=== PATIENT | male | born 1980 | race African-American/Black ===

== ENCOUNTER 2019-08-09 11:05 | Inpatient (IN) ==
[2019-08-09 11:38] LABS: Basophils # 0.1 10*3/uL (0.0-0.2); Basophils % 1.2 % (0.0-0.8); Eosinophils # 0.1 10*3/uL (0.0-0.87); Eosinophils % 1.5 % (0.00-10.9); Hematocrit 34.5 VOL% (42.0-52.0); Hemoglobin 12.8 GM/DL (14.0-18.0); Immature Granulocytes % 0.5 %; Immature Granulocytes Absolute 0.03 #; Lymphocytes # 2.2 10*3/uL (1.4-4.0); Lymphocytes % 32.4 % (21.2-54.2); Mean Corpuscular HGB Conc 37.1 GM/DL (32-36); Monocytes % 13.9 % (1.7-12.7); Neutrophils % 50.5 % (38.7-73.9); Platelet Count 274 T/CUMM (130-400); Red Blood Count 4.26 MC/CUMM (3.8-5.5); White Blood Count 6.6 T/CUMM (4-12)
[2019-08-09 12:03] LABS: Alanine Aminotransferase 1941 U/L (16-61); Alkaline Phosphatase 288 U/L (45-117); Aspartate Amino Transferase 1746 U/L (0-37); Blood Urea Nitrogen 8 MG/DL (7-18); Calcium 8.5 MG/DL (8.5-10.1); Estimated Glom Filtration Rate 136 ML/MIN; Glucose 100 MG/DL (74-106); Osmolality,Calculated 265.2 MOS/KG (273-304); Total Protein 7.3 G/DL (6.4-8.3)
[2019-08-09 12:36] LABS: Barbiturates Screen,Urine Negative (Negative); Benzodiazepines Screen,Urine Negative (Negative); Cannabinoid Screen,Urine Negative (Negative); Opiate Screen,Urine Negative (Negative); Phencyclidine Screen,Urine Negative (Negative)
[2019-08-09 13:22] LABS: Hepatitis B Core IgM Quant > 9.00 Index; Hepatitis B Surface Ag Quant > 1000.00 Index; Hepatitis B Surface Ag Result Positive (Negative); Hepatitis C Virus Ab Quant 0.17 Index; Hepatitis C Virus Ab Result Negative (Negative)
[2019-08-09 14:41] LABS: INR 1.1
[2019-08-09] MEDS: SODIUM CHLORIDE 0.9% 1,000 ML IV SCH (17:54)
[2019-08-09] MEDS: MORPHINE 4 MG/1 ML VIAL IV PRN (21:52)
[2019-08-09] MEDS: ENOXAPARIN 40 MG/0.4 ML SYRINGE SUBCUT SCH (21:52)
[2019-08-10] MEDS: SODIUM CHLORIDE 0.9% 1,000 ML IV SCH ×4 (01:01→16:41)
[2019-08-10 06:06] LABS: Basophils # 0.1 10*3/uL (0.0-0.2); Basophils % 1.4 % (0.0-0.8); Eosinophils # 0.2 10*3/uL (0.0-0.87); Eosinophils % 3.4 % (0.00-10.9); Hematocrit 36.1 VOL% (42.0-52.0); Hemoglobin 13.1 GM/DL (14.0-18.0); Immature Granulocytes % 0.4 %; Immature Granulocytes Absolute 0.02 #; Lymphocytes # 2.4 10*3/uL (1.4-4.0); Lymphocytes % 42.6 % (21.2-54.2); Mean Corpuscular HGB Conc 36.3 GM/DL (32-36); Mean Corpuscular Volume 81.7 FL (87-102); Mean Platelet Volume 11.1 FL (9.6-12.0); Monocytes % 12.7 % (1.7-12.7); Neutrophils % 39.5 % (38.7-73.9); Platelet Count 275 T/CUMM (130-400); Red Blood Count 4.42 MC/CUMM (3.8-5.5); Red Cell Distribution Width 17.5 % (9.3-17.3); White Blood Count 5.5 T/CUMM (4-12)
[2019-08-10 06:20] LABS: INR 1.2; PT Patient Result 12.6 SECS (9.6-12.2)
[2019-08-10 06:36] LABS: Albumin 2.8 G/DL (3.4-5.0); Calcium 8.8 MG/DL (8.5-10.1); Osmolality,Calculated 269.8 MOS/KG (273-304); Total Protein 6.8 G/DL (6.4-8.3)
[2019-08-10] MEDS: PANTOPRAZOLE 40 MG TABLET PO SCH (08:35)
[2019-08-10] MEDS: ENOXAPARIN 40 MG/0.4 ML SYRINGE SUBCUT SCH (20:36)
[2019-08-10] MEDS: MORPHINE 4 MG/1 ML VIAL IV PRN (20:38)
[2019-08-11] MEDS: MORPHINE 4 MG/1 ML VIAL IV PRN ×2 (01:20→05:57)
[2019-08-11] MEDS: ONDANSETRON 4 MG/2 ML VIAL IV PRN ×2 (01:26→05:57)
[2019-08-11 05:55] LABS: Basophils # 0.1 10*3/uL (0.0-0.2); Basophils % 1.5 % (0.0-0.8); Eosinophils # 0.2 10*3/uL (0.0-0.87); Eosinophils % 4.2 % (0.00-10.9); Hematocrit 33.5 VOL% (42.0-52.0); Hemoglobin 12.3 GM/DL (14.0-18.0); Immature Granulocytes % 0.2 %; Immature Granulocytes Absolute 0.01 #; Lymphocytes # 2.3 10*3/uL (1.4-4.0); Lymphocytes % 41.6 % (21.2-54.2); Mean Corpuscular HGB Conc 36.7 GM/DL (32-36); Mean Corpuscular Volume 81.7 FL (87-102); Mean Platelet Volume 10.8 FL (9.6-12.0); Monocytes % 13.6 % (1.7-12.7); Neutrophils % 38.9 % (38.7-73.9); Platelet Count 274 T/CUMM (130-400); Red Cell Distribution Width 17.4 % (9.3-17.3); White Blood Count 5.5 T/CUMM (4-12)
[2019-08-11] MEDS: SODIUM CHLORIDE 0.9% 1,000 ML IV SCH ×3 (05:56→12:27)
[2019-08-11 06:25] LABS: Albumin 2.4 G/DL (3.4-5.0); Bilirubin,Total 6.7 MG/DL (0.2-1.0); Calcium 8.1 MG/DL (8.5-10.1); Osmolality,Calculated 280.1 MOS/KG (273-304); Total Protein 6.2 G/DL (6.4-8.3)
[2019-08-11] MEDS: PANTOPRAZOLE 40 MG TABLET PO SCH (08:04)
[2019-08-11 08:33] VITALS: BP 108/69
[2019-08-12 07:26] LABS: Cannabinoid Screen,Urine Negative (Negative); Opiate Screen,Urine Negative (Negative); Phencyclidine Screen,Urine Negative (Negative)
[2019-08-12 07:31] LABS: Drug Screen SG 1.014
== END 2019-08-11 13:28 | disposition home or self-care (01) | DRG 441 ==
LOC: N.ED 11:05 → SUATTDRO 14:12 → N.EDINP 14:12 → N.5E 15:17
PROVIDERS: ADMIT Internal Medicine; ATTEND Internal Medicine